=== PATIENT | male | born 1995 | race Caucasian/White ===

== ENCOUNTER → 2021-05-03 | Outpatient (CLI) | payer OTHER | LOC: COL.RAD 07:30 | DX: G93.5 Compression of brain (principal); M79.89 Other specified soft tissue disorders; R20.2 Paresthesia of skin; M54.50 Low back pain, unspecified ==

== ENCOUNTER 2021-07-30 11:15 | Outpatient (RCR) | payer OTHER | END 2021-08-04 | disposition home or self-care (01) | LOC: WSPT | DX: G82.20 Paraplegia, unspecified (principal) ==

== ENCOUNTER 2021-08-30 12:45 | Outpatient (RCR) | payer OTHER | END 2021-09-04 | disposition still patient (30) | LOC: WSPT | DX: G82.20 Paraplegia, unspecified (principal) ==

== ENCOUNTER → 2021-10-04 | Outpatient (RCR) | payer OTHER | END | disposition home or self-care (01) | LOC: WSPT | DX: G82.20 Paraplegia, unspecified (principal) ==

== ENCOUNTER 2021-11-01 08:15 | Outpatient (RCR) | payer OTHER | END 2021-11-04 | disposition home or self-care (01) | LOC: WSPT | DX: G82.20 Paraplegia, unspecified (principal) ==

== ENCOUNTER 2021-12-04 12:45 | Outpatient (RCR) | payer OTHER | END 2021-12-05 | disposition home or self-care (01) | LOC: WSPT | DX: G82.20 Paraplegia, unspecified (principal) ==

== ENCOUNTER 2022-01-31 09:00 | Outpatient (RCR) | payer OTHER | END 2022-02-04 | disposition home or self-care (01) | LOC: WSPT | DX: G82.20 Paraplegia, unspecified (principal) ==